=== PATIENT | male | born 1975 | race Caucasian/White ===

== ENCOUNTER 2019-07-20 23:22 | Emergency (ER) | payer SELFPAY ==
[~2019-07-20] VITALS: Ht 177.8 cm; Wt 97.1 kg
[2019-07-20 23:25] VITALS: Ht 177.8 cm; Wt 97.1 kg
[2019-07-21 00:49] VITALS: BP 149/98
== END 2019-07-21 00:49 | disposition left against medical advice (07) ==
LOC: ED 23:22
DX: I10 Essential (primary) hypertension (principal); R51 Headache; Z88.8 Allergy status to other drugs, medicaments and biological substances

== ENCOUNTER 2020-01-28 22:00 | Emergency (ER) | payer SELFPAY ==
[~2020-01-28] VITALS: Ht 180.3 cm; Wt 95.3 kg
[2020-01-28 22:02] VITALS: BP 169/116; Ht 180.3 cm; Wt 95.3 kg
== END 2020-01-28 23:12 | disposition left against medical advice (07) ==
LOC: ED 22:00
DX: Z53.21 Procedure and treatment not carried out due to patient leaving prior to being seen by health care provider (principal)

== ENCOUNTER 2020-08-03 17:59 | Emergency (ER) | payer SELFPAY ==
[~2020-08-03] VITALS: Ht 177.8 cm; Wt 82.1 kg
[2020-08-03 18:05] VITALS: Ht 177.8 cm; Wt 82.1 kg
[2020-08-03 18:36] LABS: BASOPHIL % 0.9 % (0.2-1.5); RED CELL DISTRIBUTION WIDTH 12.8 % (12.1-16.2)
[2020-08-03 18:38] LABS: PLATELET COUNT 97 x10^3mcL (152-348)
[2020-08-03 18:55] LABS: ALBUMIN 3.3 g/dL (3.4-5.0); ALKALINE PHOSPHATASE 191 U/L (46-116); ALT/SGPT 74 U/L (16-63); AST/SGOT 148 U/L (15-37); BILIRUBIN TOTAL 3.6 mg/dL (0.20-1.00); CALCIUM 8.6 mg/dL (8.5-10.1); CARBON DIOXIDE 23.1 mmol/L (21-32); CHLORIDE SERUM 103 mmol/L (98-107); CREATININE SERUM 0.7 mg/dL (0.7-1.3); GFR1 > 60 mL/min; GLUCOSE SERUM 145 mg/dL (74-106); SODIUM SERUM 140 mmol/L (136-145); TOTAL PROTEIN, SERUM 8.8 g/dL (6.4-8.2)
[2020-08-03 18:57] LABS: POTASSIUM SERUM 2.8 mmol/L (3.5-5.1)
[2020-08-03 21:18] LABS: microscopic required? YES; urine erythrocyte NEGATIVE (NEGATIVE)
[2020-08-03 21:30] LABS: AMPHETAMINE QUAL UR NONE DETECTED (See below)
[2020-08-03] MEDS ORDERED: LIB25 PO (22:19)
[2020-08-03] MEDS ORDERED: ONDANSETRON4 M3 PO (22:19)
[2020-08-03 22:30] VITALS: BP 124/81
[2020-08-04] MEDS ORDERED: VALSARTAN160 MG PO (13:12)
[2020-08-04] MEDS ORDERED: ZOF4 PO (13:12)
[2020-08-04] MEDS ORDERED: TADALAFIL2.5 MG PO (13:12)
== END 2020-08-03 22:47 | disposition home or self-care (01) ==
LOC: ED 17:59
PROVIDERS: Emergency Medicine
DX: F10.129 Alcohol abuse with intoxication, unspecified (principal); E87.6 Hypokalemia; I10 Essential (primary) hypertension; J45.909 Unspecified asthma, uncomplicated; Z88.8 Allergy status to other drugs, medicaments and biological substances
CPT/HCPCS: G0480; J0360; J2060; J2405; J3480; J7030

== ENCOUNTER 2020-08-04 09:46 | Emergency (ER) | payer SELFPAY ==
[~2020-08-04] VITALS: Ht 177.8 cm; Wt 84.4 kg
[~2020-08-04 09:46] MED LIST: LIB25 PO; ONDANSETRON4 M3 PO
[2020-08-04 10:09] VITALS: Ht 177.8 cm; Wt 84.4 kg
[2020-08-04] MEDS ORDERED: ZOF4 PO (13:12)
[2020-08-04] MEDS ORDERED: TADALAFIL2.5 MG PO (13:12)
[2020-08-04] MEDS ORDERED: VALSARTAN160 MG PO (13:12)
[2020-08-04 13:35] VITALS: BP 140/92
== END 2020-08-04 13:35 | disposition home or self-care (01) ==
LOC: ED 09:46
DX: F10.20 Alcohol dependence, uncomplicated (principal); I10 Essential (primary) hypertension; J45.909 Unspecified asthma, uncomplicated; Z76.0 Encounter for issue of repeat prescription
CPT/HCPCS: Q0162